=== PATIENT | female | born 1945 | race Caucasian/White ===

== ENCOUNTER 2018-06-19 10:00 | Outpatient (RCR) | payer MEDICARE, OTHER, SELFPAY ==
--- NOTE | 2018-04-25 14:13 | HP.OTEVAL_ITS ---
Patient's Visit Information MARIAH ROCA is a 73 year old F, referred to Occupational Therapy by Luiz Garcia MD, with a diagnosis of CMC arthoplasty. Date of Evaluation: 04/25/18 Occupational Therapist: Lorin Chavez - Subjective Subjective: Arrived post cast removal at 10 am at [facility]. She was referred from Dr. Garcia and is s/p CMC arthoplasty on 03/28/18. - ADLs Dressing: Underwear, Bra, Button shirt, Coat, Pants, Socks, Shoes, Earrings Fasteners: Buttons, Zippers Eating: Use silverware, Cut food Bathing: Handle washcloth & soap Toileting: Manage clothing Kitchen: Chop with knife, Peel fruits & vegetables, Open jars, Open bottle caps, Lift gallon of milk, Pour from pitcher, Take dish out of oven, Load/unload cow washer, Place dish in microwave Miscellaneous: Use remote control, Use cell phone, Open medication bottle, Take things out of wallet, Use computer keyboard, Play musical instrument, Do crafts, Sew, Juan F/knit/needlework - Pain L thumb 0 Pain Intensity Range: 0, 6 - Objective Objective/Observation: Steri strips intact; scar closed and red, healing. Descreased ROM of L thumb and strength of L hand. Increased ulnar deviation noted at left wrist. - ROM Wrist: flexion R 0-75, L 0-49; extension R0-49, L 0-30 MP: L 12-41, L 0-16 IP: L 0-73, L 0-52 Radial Abduction: R 0-49, L 0-29 Opposition: R 0-29, 0-9 MP: WFL PIP: WFL DIP: WFL ROM Comments: Ulnar drift noted. Ulnar Deviation: R WFL, L 15-45. Radial Deviation: R WFL; L 0-13 - Strength Piece Dye Worker: R 56, L WFL Lateral Pinch: R 18, L WFL Tripod Pinch: R 12, L WFL Tip-to-Tip Pinch: R 10, L WFL - Sensation Sensation Comments: denies numbness or tingling. - Quick DASH-Disab of Arm,Shoulder& Hand Quick DASH Score: 29.5450 - Hand/Wrist Evaluation Total Score of Pain & Functional Sections: 41 - Goals Goal:: Mariah to increased L bilingual student tutor strength within 20 lbs of R nonaffected bilingual student tutor 2/3 trials 75% of the time to promote increased strength and ability to complete ADL/IADls by d/c. Goal:: Mariah to increased L thumb ROM within 7 degress of R nonaffected thumb to promote increased ROM and strength for ADL/IADLs by d/c. Goal:: Mariah to have no more than 1/10 pain in left thumb with ADL/IADls 4/5 trials 80% of the time by d/c. Goal:: Mariah to increased ability to complete functional pinch patterns and finger dexterity with decreased time on 9 hole pegboard test to promote ADL/IADLs by d/c. Goal:: Mariah to be mod I to complete edema management techniques to decrease risk of swelling 4/5 trials 80% of the time by d/c. Goal:: Mariah to be mod I to complete daily scar massage to promote increased ROM and decreased stiffness at surgical incision by d/c. Goal:: Mariah to be (I) to return to all ADL/IADls with use of L thumb 4/5 trials 80% of the time to increased (I) and QOL by d/c. Goal:: Mariah to mod I to compleye daily HEP to promote ROM and PRE when appropriate to increased functional use of left hand 4/5 trials 80% of the time by d/c. - Rehabilitation General Assessment: Mariah arrived for OT evaluation on this date of 04/25/18. She is s/p L CMC arthroplasty. A forearm based custom thumb spica splint was fabricated to promote CMC support. Mariah exhibits decreased ROM, strength, and general functional use of left hand. Further skilled OT warranted to promote increased ROM and PRE for strengthening to promote returning to ADL/IADLs. Rehabilitation Potential: Good - Anticipated Interventions Anticipated Interventions: Early Active Motion, A/AAROM/PROM, Strengthening, Edema Control, Scar Care, Sensory Retraining, Wound Care, Modalities, Orthoses, Joint Protection/Energy Conservation, Ergonomic Education, Dynamic Sitting Balance, Fine Motor Coord/Amor, ADL Training, Caregiver Training, Home Program - Visit Plan Frequency: 2x /Week Duration: 4-6 Weeks General Plan: Mariah to complete OT to promote ROM, PRE, edema mangement as needed, modalities to promote ROM, and general training to increased fx use of left hand to retrun to all ADL/IADLs. Mariah lives in [place] and would like to complete 2x weekly appointments only at this time. May taper depending on progression. TEXT: Thank you for the opportunity to evaluate your patient. For Medicare and Medicare HMO plans, please review the plan of care and approve it. It will need to be FAXED BACK to us at [phone] for Medicare purposes. Please let me know if there are questions or concerns regarding this plan of care. Physician Signature: Date:
--- NOTE | 2018-05-22 10:44 | OTREVAL_ITS ---
Luiz Garcia MD, It has been my pleasure to treat MARIAH ROCA over the last 9 visits for CMC arthoplasty. Please see the progress note below for an update on the occupational therapy plan of care! Subjective: Arrived and noted some achiness but notes thumb is doing well. Feels she has made 60% improvement to PLOF. She has follow up with Dr. Garcia on Saturday as she is 8 weeks out. Comfort cool CMC brace has arrived for her and she will transition to that brace at this time with further instruction from OT on wearing schedule. Objective/Function: Completed new measurements on this date of 05/22/18 as she is 8 weeks post-op. Results are as follows: ROM: Wrist. Flexion R WFL, L 0-63. extension R WFL, L 0-47. Thumb. - Opposition: R WFL , L 0-26. - MP flexion: R WFL, L 0-44. - IP flexion: R WFL, L -19-0-67. - Radial abduction: R WFL , L 0-41. Strength: Job Service Consultant R 54, L 30 lbs. Lateral R 15, L (as tolerated only) 6 lbs. Three jaw R 13, L (as tolerated only) 4 lbs. 9 hole pegboard test: R 22.46 s. L 25.12 s. Mariah is progressing from inital evaluation and further skilled OT needed at this time to return to PLOF. Plan Frequency: 2x /Week Duration: 4-6 Weeks Visits in this POC: 12 Plan: continue POC for another 2x weekly appointments for next four weeks. Will start to transition focus from intrinsic strengthening to working more resistive strength atsks with us eof BTE to promote increased strength needed to return to all ADL/IADLS including some crocheting and other crafts. Goals - Goals Goal:: Mariah to increased L bridge expert strength within 20 lbs of R nonaffected bridge expert 2/3 trials 75% of the time to promote increased strength and ability to complete ADL/IADls by d/c. Goal:: Mariah to increased L thumb ROM within 7 degress of R nonaffected thumb to promote increased ROM and strength for ADL/IADLs by d/c. Goal:: Mariah to have no more than 1/10 pain in left thumb with ADL/IADls 4/5 trials 80% of the time by d/c. Goal:: Mariah to increased ability to complete functional pinch patterns and finger dexterity with decreased time on 9 hole pegboard test to promote ADL/IADLs by d/c. Goal:: Mariah to be mod I to complete edema management techniques to decrease risk of swelling 4/5 trials 80% of the time by d/c. Goal:: Mariah to be mod I to complete daily scar massage to promote increased ROM and decreased stiffness at surgical incision by d/c. Goal:: Mariah to be (I) to return to all ADL/IADls with use of L thumb 4/5 trials 80% of the time to increased (I) and QOL by d/c. Goal:: Mariah to mod I to compleye daily HEP to promote ROM and PRE when appropriate to increased functional use of left hand 4/5 trials 80% of the time by d/c. Anticipated Interventions Anticipated Interventions: Early Active Motion, A/AAROM/PROM, Strengthening, Edema Control, Scar Care, Sensory Retraining, Wound Care, Modalities, Orthoses, Joint Protection/Energy Conservation, Ergonomic Education, Dynamic Sitting Ba beth, Fine Motor Coord/Amor, ADL Training, Caregiver Training, Home Program Please do not hesitate to contact me at [phone] by phone or if you have questions or concerns regarding this new plan of care! Sincerely, Lorin Chavez
--- NOTE | 2018-06-19 11:21 | HP.OTREVAL ---
Luiz Garcia MD, It has been my pleasure to treat MARIAH ROCA over the last 17 visits for CMC arthoplasty. Please see the progress note below for an update on the occupational therapy plan of care! Subjective: Arrived and noted thing 'are definitely getting better'. She feels she is back to PLOF as not in the pain she was prior to surgery. Objective/Function: Completed reassessment on this date of 06/19/18 and results are as follows: ROM. - thumb opposition R WFL, L 0-26. - radial adduction R 0-39, L 0-44. - MP R 0-68, L 0-42. - IP R -28-0-49, L -20-0-67. Edema R 6.6 cm, L 6.8 cm. Strength. Senior Data Mining Analyst R 65, L 43. Lateral R 19, L 12. three Jaw R 15, L 8. Pincer R 10, L 7 lbs. 9 hole R 22.85 s, L 25.16 s. She has progressed in all measurements since inital evaluation. Plan Frequency: 1x/Week Duration: 2 Weeks Visits in this POC: 18 Plan: Tenative 1x follow up in two weeks after trialing some different techniques to support thumb while crocheting. But if doing well she will call in and cancel appoinment and will be d/c'd. She has progressed in all measurements and is back to completing all ADL and most IADLs. Goals - Goals Goal:: Mariah to increased L asphalt mixing machine operator strength within 20 lbs of R nonaffected asphalt mixing machine operator 2/3 trials 75% of the time to promote increased strength and ability to complete ADL/IADls by d/c. Goal:: Mariah to increased L thumb ROM within 7 degress of R nonaffected thumb to promote increased ROM and strength for ADL/IADLs by d/c. Goal:: Mariah to have no more than 1/10 pain in left thumb with ADL/IADls 4/5 trials 80% of the time by d/c. Goal:: Mariah to increased ability to complete functional pinch patterns and finger dexterity with decreased time on 9 hole pegboard test to promote ADL/IADLs by d/c. Goal:: Mariah to be mod I to complete edema management techniques to decrease risk of swelling 4/5 trials 80% of the time by d/c. Goal:: Mariah to be mod I to complete daily scar massage to promote increased ROM and decreased stiffness at surgical incision by d/c. Goal:: Mariah to be (I) to return to all ADL/IADls with use of L thumb 4/5 trials 80% of the time to increased (I) and QOL by d/c. Goal:: Mariah to mod I to compleye daily HEP to promote ROM and PRE when appropriate to increased functional use of left hand 4/5 trials 80% of the time by d/c. Anticipated Interventions Anticipated Interventions: Early Active Motion, A/AAROM/PROM, Strengthening, Edema Control, Scar Care, Sensory Retraining, Wound Care, Modalities, Orthoses, Joint Protection/Energy Conservation, Ergonomic Education, Dynamic Sitting Balance, Fine Motor Coord/Amor, ADL Training, Caregiver Training, Home Program Please do not hesitate to contact me at [phone] by phone or if you have questions or concerns regarding this new plan of care! Sincerely, Lorin Chavez
--- NOTE | 2018-07-08 12:40 | HP.OTDCSUM ---
HP - OT D/C Summary It has been my pleasure to treat MARIAH ROCA under orders from Luiz Garcia MD, for the diagnosis of CMC arthoplasty for a total of 17 visit(s). Please see the following information for a summary of their discharge status. - Overall Improvement % Improvement: 100 - Objective Objective/Function: Completed reassessment on this date of 06/19/18 and results are as follows: ROM. - thumb opposition R WFL, L 0-26. - radial adduction R 0-39, L 0-44. - MP R 0-68, L 0-42. - IP R -28-0-49, L -20-0-67. Edema R 6.6 cm, L 6.8 cm. Strength. Air Traffic Control Equipment Repairer R 65, L 43. Lateral R 19, L 12. three Jaw R 15, L 8. Pincer R 10, L 7 lbs. 9 hole R 22.85 s, L 25.16 s. She has progressed in all measurements since inital evaluation. - Goals Patient Goals: Regain Mobility, Regain Strength, Decrease Pain, Return to Work, Decrease Swelling/Stiffness, Improve Fine Motor Skills, Use Hand/Wrist/Arm Normally Again, Sleep Better, Increase ROM, Be More Independent in ADLS, Resume Former Household Responsibilities (Cooking,Cleaning,Yard, etc.), Resume Hobbies Goal:: Mariah to increased L piece dye worker strength within 20 lbs of R nonaffected piece dye worker 2/3 trials 75% of the time to promote increased strength and ability to complete ADL/IADls by d/c. Goal:: Mariah to increased L thumb ROM within 7 degress of R nonaffected thumb to promote increased ROM and strength for ADL/IADLs by d/c. Goal:: Mariah to have no more than 1/10 pain in left thumb with ADL/IADls 4/5 trials 80% of the time by d/c. Goal:: Mariah to increased ability to complete functional pinch patterns and finger dexterity with decreased time on 9 hole pegboard test to promote ADL/IADLs by d/c. Goal:: Mariah to be mod I to complete edema management techniques to decrease risk of swelling 4/5 trials 80% of the time by d/c. Goal:: Mariah to be mod I to complete daily scar massage to promote increased ROM and decreased stiffness at surgical incision by d/c. Goal:: Mariah to be (I) to return to all ADL/IADls with use of L thumb 4/5 trials 80% of the time to increased (I) and QOL by d/c. Goal:: Mariah to mod I to compleye daily HEP to promote ROM and PRE when appropriate to increased functional use of left hand 4/5 trials 80% of the time by d/c. - Plan Plan: She has progressed in all measurements and is back to completing all ADL and most IADLs. Mariah will be d/c'd at this time. - D/C Information If there are questions or concerns regarding this patient's occupational therapy, please fell free to call me at [phone]. Thank you for the referral of this patient. Sincerely, Lorin Chavez
== END 2018-06-19 19:00 | disposition home or self-care (01) ==
LOC: OT 10:00
PROVIDERS: Family Provider Family Medicine; PCP Family Medicine; Referring Provider Specialist; Visit Provider Specialist
DX: M18.12 Unilateral primary osteoarthritis of first carpometacarpal joint, left hand (principal); Z47.89 Encounter for other orthopedic aftercare
CPT/HCPCS: 97035; 97110; 97166; 97530; 97760; 97763